=== PATIENT | male | born 1990 | race American Indian/Alaskan Native ===

== ENCOUNTER 2020-12-10 01:45 | Observation (INO) | payer SELFPAY ==
[2020-12-10] MEDS ORDERED: SODIUM CHLORIDE 0.9% 1000 ML 1,000 ML IV ONE (01:55)
[2020-12-10] MEDS ORDERED: levETIRAcetam 1000 MG/NS 0.75% 1,000 MG/100 ML BAG IV ONE (01:55)
--- NOTE | 2020-12-10 01:57 | Emergency Department Report ---
ED Seizure HPI - General Stated Complaint: SEIZURE Time Seen by Provider: 12/10/20 01:53 Source: patient, EMS Mode of arrival: Stretcher Limitations: Altered Mental Status - History of Present Illness Initial Comments: Patient is a 30-year-old male who presents emergency room with complaints of seizure activity. Patient states she never had a seizure before. Patient states he feels fatigued and weak. Patient brought in by EMS. Report received from EMS. EMS states that the patient was postictal upon arrival. Patient seizure was witnessed by his friends and family. Patient states not taking medication. Patient states he was drinking alcohol and taking marijuana today. Patient denies other drugs. Patient denies recent travel. Patient denies recent international travel. Patient denies exposure to the novel coronavirus. Patient denies sick contacts. Patient denies fever and chills. Patient denies cough. Patient denies diarrhea. Patient denies coming in contact with anybody with symptoms of the novel coronavirus. MD Complaint: seizure, loss of consciousness -: Sudden Description of Episode: loss of consciousness, tonic-clonic movement, bladder incontinence, post-event confusion -: second(s) Witnessed:: Yes Trauma: No Seizure History: none Place: home Possible Precipitating Event: drug use, alcohol withdrawal Associated Symptoms: confusion, malaise, weakness. denies: chest pain, cough, diaphoresis, fever/chills, loss of appetite, shortness of breath, syncope, tongue injury, shoulder dislocation Treatments Prior to Arrival: none - Related Data Allergies Allergy/AdvReac Type Severity Reaction Status Date / Time No Known Allergies Allergy Unverified 12/10/20 02:08 ED Review of Systems ROS: Stated complaint: SEIZURE Other details as noted in HPI Constitutional: malaise, weakness. denies: chills, fever Eyes: denies: eye pain, eye discharge, vision change ENT: denies: ear pain, throat pain Respiratory: denies: cough, shortness of breath, wheezing Cardiovascular: denies: chest pain, palpitations Endocrine: no symptoms reported Gastrointestinal: denies: abdominal pain, nausea, diarrhea Genitourinary: denies: urgency, dysuria Musculoskeletal: denies: back pain, joint swelling, arthralgia Skin: denies: rash, lesions Neurological: as per HPI, weakness. denies: headache, paresthesias Psychiatric: denies: anxiety, depression Hematological/Lymphatic: denies: easy bleeding, easy bruising ED Past Medical Hx - Past Medical History Previous Medical History?: No - Surgical History Past Surgical History?: No - Family History Family history: no significant - Social History Smoking Status: Current Every Day Smoker Substance Use Type: Alcohol, Marijuana ED Physical Exam - General Limitations: Altered Mental Status General appearance: alert, in no apparent distress - Head Head exam: Present: atraumatic, normocephalic - Eye Eye exam: Present: normal appearance - ENT ENT exam: Present: mucous membranes moist - Neck Neck exam: Present: normal inspection - Respiratory Respiratory exam: Present: normal lung sounds bilaterally. Absent: respiratory distress - Cardiovascular Cardiovascular Exam: Present: regular rate, normal rhythm. Absent: systolic murmur, diastolic murmur, rubs, gallop - GI/Abdominal GI/Abdominal exam: Present: soft, normal bowel sounds - Rectal Rectal exam: Present: deferred - Extremities Exam Extremities exam: Present: normal inspection - Back Exam Back exam: Present: normal inspection - Neurological Exam Neurological exam: Present: alert, oriented X3 - Psychiatric Psychiatric exam: Present: normal affect, normal mood - Skin Skin exam: Present: warm, dry, intact, normal color. Absent: rash ED Course Vital Signs 12/10/20 12/10/20 12/10/20 01:59 02:00 02:08 Temperature 96.9 F L Pulse Rate 117 H 114 H Respiratory 15 18 Rate Blood Pressure 115/62 O2 Sat by Pulse 96 96 Oximetry 12/10/20 12/10/20 12/10/20 02:15 02:31 02:58 Temperature Pulse Rate 131 H 114 H 105 H Respiratory 16 15 19 Rate Blood Pressure 115/62 112/63 O2 Sat by Pulse 97 98 100 Oximetry 12/10/20 12/10/20 12/10/20 03:01 03:15 03:31 Temperature Pulse Rate 112 H 107 H 107 H Respiratory 16 15 16 Rate Blood Pressure 131/87 O2 Sat by Pulse 99 99 99 Oximetry - Reevaluation(s) Reevaluation #1: No seizure activity noted in the ER. Patient states he is feeling much better. 12/10/20 02:31 Reevaluation #2: No seizure activity in the ER. Patient states he is feeling much better. I discussed all results with patient. I discussed plan of care with patient. Patient agrees with plan of care and admission. Patient to be admitted to the ospitalist service. 12/10/20 05:01 - Consultations Consultation #1: Hospitalist consulted for admission. Hospitalist to admit patient. 12/10/20 05:02 ED Medical Decision Making - Lab Data Result diagrams: 12/10/20 02:02 12/10/20 02:02 - EKG Data -: EKG Interpreted by Id EKG shows normal: sinus rhythm, axis, intervals, QRS complexes, ST-T waves Rate: normal - Radiology Data Radiology results: report reviewed CT cervical spine wo con INDICATION: Seizure, now with neck pain. TECHNIQUE: All CT scans at this location are performed using CT dose reduction for ALARA by means of automated exposure control. COMPARISON: None available. FINDINGS: Tiny ossific density anterior to the superior endplate of C5 is probably congenital and of no current clinical significance. No acute fracture or subluxation. IMPRESSION: 1. No acute abnormality. CT head/brain wo con INDICATION: Seizure, now with head pain. TECHNIQUE: All CT scans at this location are performed using CT dose reduction for ALARA by means of automated exposure control. COMPARISON: None available. FINDINGS: Visualized paranasal and mastoid sinuses are clear no cranial fracture or significant extracranial soft tissue swelling. Ventricles are symmetrical and normal in size. No mass, hemorrhage or other significant abnormality. IMPRESSION: 1. No acute abnormality. - Medical Decision Making Patient is a 30-year-old male that presents emergency room for seizure. Patient does not have a history of seizure. Patient states the bite under a lot of stress as well as using drugs and alcohol. Patient had labs done which were essentially unremarkable except for metabolic acidosis. Patient given Keppra and saline bolus immediately after initial evaluation. Patient was on scene per EMS. Patient's mentation improved while in route. Patient alert and oriented x3 and answers questions appropriately upon arrival to the ER. Patient is not sure if he hit his head. Patient seizure an event witnessed by friends and family. Patient admitted to the hospital service for further evaluation and treatment. Critical care time documented due to the multiple reassessments, prolonged time at the bedside, interpretation of diagnostics and labs. - Differential Diagnosis Seizure, new onset seizure, stress reaction, drug-induced, Critical Care Time: Yes Critical care time in (mins) excluding proc time.: 35 Critical care attestation.: If time is entered above; I have spent that time in minutes in the direct care of this critically ill patient, excluding procedure time. Critical Care Time: 35 minutes ED Disposition Clinical Impression: Metabolic acidosis, New onset seizure, Seizure Disposition: OP ADMIT IP TO THIS HOSP Is pt being admited?: Yes Does the pt Need Aspirin: No Condition: Critical Time of Disposition: 04:54
[2020-12-10 02:30] LABS: Basophils % (Auto) 0.3 % (0.0-1.8); Eosinophils # (Auto) 0.1 K/mm3 (0.0-0.4); Eosinophils % (Auto) 1.2 % (0.0-4.3); Hematocrit 48.5 % (35.5-45.6); Hemoglobin 16.1 gm/dl (11.8-15.2); Lymphocytes # (Auto) 1.3 K/mm3 (1.2-5.4); Lymphocytes % (Auto) 13.5 % (13.4-35.0); Mean Corpuscular HGB Conc 33 % (32-34); Mean Corpuscular Volume 94 fl (84-94); Monocytes # (Auto) 0.4 K/mm3 (0.0-0.8); Monocytes % (Auto) 4.5 % (0.0-7.3); Platelet Count 285 K/mm3 (140-440); Red Blood Count 5.19 M/mm3 (3.65-5.03)
[2020-12-10 02:42] LABS: Alanine Aminotransferase 28 units/L (7-56); BUN/Creatinine Ratio 9; Blood Urea Nitrogen 11 mg/dL (9-20); Calcium 9.2 mg/dL (8.4-10.2); Hemolysis Index 6
--- NOTE | 2020-12-10 03:15 | Cat Scan Report ---
CT head/brain wo con INDICATION: Seizure, now with head pain. TECHNIQUE: All CT scans at this location are performed using CT dose reduction for ALARA by means of automated e xposure control. COMPARISON: None available. FINDINGS: Visualized paranasal and mastoid sinuses are clear no cranial fracture or significant extracranial so ft tissue swelling. Ventricles are symmetrical and normal in size. No mass, hemorrhage or other significant abnormality. IMPRESSION: 1. No acute abnormality. Signer Name: Gurvinder Castle MD Signed: 12/10/2020 3:10 AM Workstation Name: [id number]
--- NOTE | 2020-12-10 03:18 | Cat Scan Report ---
CT cervical spine wo con INDICATION: Seizure, now with neck pain. TECHNIQUE: All CT scans at this location are performed using CT dose reduction for ALARA by means of automated e xposure control. COMPARISON: None available. FINDINGS: Tiny ossific density anterior to the superior endplate of C5 is probably congenital and of no current clinical significance. No acute fracture or subluxation. IMPRESSION: 1. No acute abnormality. Signer Name: Gurvinder Castle MD Signed: 12/10/2020 3:13 AM Workstation Name: [id number]
[2020-12-10] MEDS ORDERED: ONDANSETRON 4 MG/2 ML INJ IV PRN (06:17)
[2020-12-10] MEDS ORDERED: MORPHINE 2 MG/1 ML INJ IV PRN (06:17)
[2020-12-10] MEDS ORDERED: ACETAMINOPHEN 325 MG TAB PO PRN (06:17)
[2020-12-10] MEDS ORDERED: MAGNESIUM HYDROXIDE (MOM) ORAL LIQD UDC PO PRN (06:17)
--- NOTE | 2020-12-10 06:26 | History and Physical Report ---
History of Present Illness Date of examination: 12/10/20 Date of admission: 12/10/2020 Chief complaint: Seizure activity History of present illness: 30-year-old -[place] male presenting to the emergency room today with seizure activity. Patient indicates that he was at the [employer] club when he started only felt weak and fatigued and subsequently developed seizures. Patient was brought to the emergency room by EMS. He denies any known history of seizure disorder. However patient admits that he has been using cocaine for the past few days because he had a misunderstanding with his girlfriend. He has been having decreased oral intake lately. He was postictal upon arrival of EMS. Patient denies any fever or chills, no chest pain or shortness of breath, no nausea vomiting, no diarrhea. He denies any headache or dizziness. Patient denies any sick contacts and no recent travel. Denies any contact with anyone with COVID-19. Patient was loaded with Keppra upon arrival in the emergency room. He is being admitted for new onset seizure disorder. Past History Past Medical History: other (Asthma) Past Surgical History: No surgical history Social history: smoking (Current daily smoker), alcohol abuse, other (Uses marijuana and cocaine) Family history: no significant family history Medications and Allergies Allergies Allergy/AdvReac Type Severity Reaction Status Date / Time No Known Allergies Allergy Unverified 12/10/20 02:08 Active Meds: Active Medications Acetaminophen (Acetaminophen 325 Mg Tab) 650 mg PO Q4H PRN PRN Reason: Pain MILD(1-3)/Fever >100.5/COREAS Enoxaparin Sodium (Enoxaparin 40 Mg/0.4 Ml Inj) 40 mg SUB-Q QDAY@2200 ADELINA; Protocol Sodium Chloride (Nacl 0.9% 1000 Ml) 1,000 mls @ 75 mls/hr IV DIRECT ADELINA Levetiracetam 500 mg/ Dextrose 105 mls @ 400 mls/hr IV Q12HR ADELINA Magnesium Hydroxide (Magnesium Hydroxide (Mom) Oral Liqd Udc) 30 ml PO Q4H PRN PRN Reason: Constipation Morphine Sulfate (Morphine 2 Mg/1 Ml Inj) 2 mg IV Q4H PRN PRN Reason: Pain, Moderate (4-6) Ondansetron HCl (Ondansetron 4 Mg/2 Ml Inj) 4 mg IV Q8H PRN PRN Reason: Nausea And Vomiting Sodium Chloride (Sodium Chloride 0.9% 10 Ml Flush Syringe) 10 ml IV BID ADELINA Sodium Chloride (Sodium Chloride 0.9% 10 Ml Flush Syringe) 10 ml IV PRN PRN PRN Reason: LINE FLUSH Review of Systems Constitutional: no fever, no chills Ears, nose, mouth and throat: no nasal congestion, no sore throat Cardiovascular: no chest pain, no palpitations Respiratory: no cough, no shortness of breath Gastrointestinal: no abdominal pain, no nausea, no vomiting, no diarrhea Genitourinary Male: no dysuria, no hematuria, no flank pain, no nocturia Musculoskeletal: no neck pain, no low back pain Integumentary: no rash, no pruritis Neurological: seizures, no headaches, no confusion Psychiatric: no anxiety, no depression, no confusion Exam - Constitutional Vitals: Temp Pulse Resp BP Pulse Ox 98.7 F 104 H 13 109/60 95 12/10/20 05:42 12/10/20 05:31 12/10/20 05:31 12/10/20 05:31 12/10/20 05:31 General appearance: Present: no acute distress, well-nourished - EENT Eyes: Present: PERRL, EOM intact. Absent: scleral icterus ENT: hearing intact, clear oral mucosa, dentition normal - Neck Neck: Present: supple, normal ROM - Respiratory Respiratory effort: normal Respiratory: bilateral: CTA - Cardiovascular Rhythm: regular Heart Sounds: Present: S1 & S2. Absent: gallop, systolic murmur, diastolic murmur, rub, click - Extremities Extremities: no ischemia, pulses intact, pulses symmetrical, No edema, normal temperature, normal color, Full ROM Peripheral Pulses: within normal limits - Abdominal General gastrointestinal: Present: soft, non-tender, non-distended, normal bowel sounds. Absent: mass - Integumentary Integumentary: Present: clear, warm, dry. Absent: rash - Musculoskeletal Musculoskeletal: strength equal bilaterally - Psychiatric Psychiatric: appropriate mood/affect, intact judgment & insight, memory intact, cooperative - Neurologic Neurologic: CNII-XII intact, no focal deficits, moves all extremities Results - Labs CBC & Chem 7: 12/10/20 02:02 12/10/20 02:02 Labs: Abnormal lab results 04/10/3112/10/20 12/10/20 Range/Units 02:02 02:02 02:02 RBC 5.19 H (3.65-5.03) M/mm3 Hgb 16.1 H (11.8-15.2) gm/dl Hct 48.5 H (35.5-45.6) % Seg Neutrophils % 80.5 H (40.0-70.0) % Seg Neutrophils # 7.9 H (1.8-7.7) K/mm3 Sodium 135 L (137-145) mmol/L Chloride 96.3 L (98-107) mmol/L Carbon Dioxide 11 L (22-30) mmol/L Glucose 121 H (75-100) mg/dL Salicylates < 0.3 L (2.8-20.0) mg/dL Acetaminophen (10.0-30.0) ug/mL 12/10/20 Range/Units 02:02 RBC (3.65-5.03) M/mm3 Hgb (11.8-15.2) gm/dl Hct (35.5-45.6) % Seg Neutrophils % (40.0-70.0) % Seg Neutrophils # (1.8-7.7) K/mm3 Sodium (137-145) mmol/L Chloride (98-107) mmol/L Carbon Dioxide (22-30) mmol/L Glucose (75-100) mg/dL Salicylates (2.8-20.0) mg/dL Acetaminophen 5.0 L (10.0-30.0) ug/mL Assessment and Plan - Patient Problems (1) New onset seizure Status: Acute Plan to address problem: Patient admitted and placed on seizure precautions. Will be initiated on IV Keppra.. Consult placed to neurology for evaluation. (2) Metabolic acidosis Status: Acute Plan to address problem: Etiology unclear. Probably secondary to decreased oral intake. Patient will be given IV fluid and sodium bicarb. We will monitor chemistry. (3) Cocaine abuse Status: Acute Plan to address problem: Patient counseled on quitting illicit drug use. He verbalized understanding. (4) DVT prophylaxis Status: Acute Plan to address problem: Patient placed on subcutaneous Lovenox. (5) Full code status Status: Acute Plan to address problem: Patient is full code.
[2020-12-10] MEDS ORDERED: SODIUM CHLORIDE 0.9% 1000 ML 1,000 ML IV SCH (06:30)
[2020-12-10] MEDS ORDERED: SODIUM BICARB 8.4% 50 MEQ/50 ML SYRINGE IV ONE (06:59)
[2020-12-10] MEDS ORDERED: levETIRAcetam 500 MG in DEXTROSE 5% IN WATER 100 ML IV SCH (10:00)
[2020-12-10 10:09] VITALS: BP 115/67
--- NOTE | 2020-12-10 14:46 | Electrocardiograph Report ---
[facility] Test Date: 2020-12-10 Test Time: 05:33:38 Pat Name: LULU FOUNTAIN Department: Room: A490 1 Gender: M Worsted Winder: : 1990 Requested By: SHARON ZAMORA III Order Number: [id number] Reading MD: Sergei Rojas Measurements Intervals Bath Rate: 100 P: 67 MN: 158 QRS: 79 QRSD: 88 T: 71 QT: 348 QTc: 448 Interpretive Statements Sinus tachycardia ST elev, probable normal early repol pattern No previous ECG available for comparison Electronically Signed On 12-10-2020 14:45:29 EDT by Sergei Rojas
--- NOTE | 2020-12-10 20:05 | Discharge Summary ---
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 Hospitalization Reason for admission: New onset seizures Condition: Serious Pertinent studies: CT head without contrast; no acute abnormality CT cervical spine; no acute abnormality Hospital course: 30-year-old -Citizen Of [place] male patient was admitted through emergency room with new onset seizure activity Patient was initially evaluated admitted to the hospital on antiepileptic me dications, seizure precautions and neurology consult Patient also has history of cocaine and tobacco use, initial work-up is consistent with metabolic acidosis and mild hyponatremia Patient was counseled and strongly advised smoking cessation and advised to quit recreational drug use Patient was waiting for neurology evaluation and recommendations However he suddenly decided not to stay and wanted to leave AGAINST MEDICAL ADVICE Nurses counseled the patient importance of staying for the treatment however he verbalized understanding the importance of getting the treatment in the hospital till he gets better however he wanted to leave and left AMA I was not present when patient left AMA Information was obtained from the medical records Patient was strongly advised to go to the nearest emergency room should he have worsening symptoms Patient is critically ill with a guarded prognosis at the time of AMA Discharge diagnosis: --New onset seizures --Metabolic acidosis --cocaine abuse --Ongoing tobacco use --Mild hyponatremia Patient left AMA Disposition: [id number] LEFT AGAINST MED ADVICE Final Discharge Diagnosis (Prints w/discharge instructions): Discharge diagnosis: --New onset seizures. --Metabolic acidosis. --cocaine abuse. --Ongoing tobacco use. --Mild hyponatremia Time spent for discharge: 32 min Core Measure Documentation - Palliative Care Palliative Care/ Comfort Measures: Not Applicable - Core Measures Any of the following diagnoses?: none Exam - Physical Exam Narrative exam: Patient left AMA - Constitutional Vitals: Temp Pulse Resp BP Pulse Ox 98.7 F 101 H 20 115/67 99 12/10/20 05:42 12/10/20 06:31 12/10/20 06:31 12/10/20 06:31 12/10/20 06:31 General appearance: Present: no acute distress, well-nourished - EENT Eyes: Present: PERRL, EOM intact - Neck Neck: Present: supple, normal ROM - Respiratory Respiratory effort: normal Respiratory: bilateral: diminished, negative: rales, rhonchi, wheezing - Cardiovascular Rhythm: regular Heart Sounds: Present: S1 & S2 - Extremities Extremities: no ischemia, No edema - Abdominal General gastrointestinal: Present: soft, non-tender, non-distended, normal bowel sounds - Integumentary Integumentary: Present: clear, warm - Musculoskeletal Musculoskeletal: strength equal bilaterally, generalized weakness - Psychiatric Psychiatric: appropriate mood/affect, cooperative - Neurologic Neurologic: CNII-XII intact, moves all extremities Plan Activity: advance as tolerated Diet: other (Cardiac diet) Additional Instructions: Patient left AMA, advised to go to emergency room if he has worsening symptoms Follow up with: PRIMARY CARE, [Primary Care Provider] - 7 Days
[2020-12-10] MEDS ORDERED: ENOXAPARIN 40 MG/0.4 ML INJ SUB-Q SCH (22:00)
== END 2020-12-10 09:17 | disposition left against medical advice (07) ==
LOC: ED 01:45 → 4A 05:02
PROVIDERS: ADMIT Internal Medicine Geriatric Medicine; ATTEND Internal Medicine
DX: R56.9 Unspecified convulsions (principal); E87.2 Acidosis; J45.909 Unspecified asthma, uncomplicated; E87.1 Hypo-osmolality and hyponatremia; F14.10 Cocaine abuse, uncomplicated; F17.210 Nicotine dependence, cigarettes, uncomplicated
CPT/HCPCS: 36415; 70450; 72125; 80053; 85025; 93005; 96361; 96374; 99291; G0378; J1953; J7030; 80320; G0480